=== PATIENT | female | born 1955 | race Caucasian/White ===

== ENCOUNTER 2018-04-21 11:47 | Emergency (ER) | payer OTHER ==
[~2018-04-21] VITALS: Ht 170.2 cm; Wt 82.1 kg
[~2018-04-21 11:47] MED LIST: ATEN50TA PO; AZIT250T12 PO; BUDE6HFA IH; HYDR-3454 PO; HYDR-700 PO; IBP200T PO; NAPR-591 PO; PRD20T PO; RT-ALBUINH IH
--- NOTE | 2018-04-21 12:13 | ED Lower Extremity ---
General Chief Complaint: Lower Extremity Stated Complaint: RT KNEE PAIN, FALL Nursing Triage Note: PT TO ROOM #7 VIA ED WC FROM TRIAGE. A&OX4. CO RT KNEE PAIN DESCRIBED "SHARP." PT REPORS SHE TRIPPED OVER A BABY GATE AND FELL TO HER KNEES APPROX 1000 THIS AM. PT DENIES HITTING HEAD OR LOC. REPORTS WHEN SHE ATTEMPTS TO MOVE RT KNEE, "IT CATCHES ON ITSELF." MINIMAL SWELLING NOTED. NO BRUISING NOTED. Nursing Sepsis Screen: No Definite Risk Source: patient, family Exam Limitations: no limitations History of Present Illness Date Seen by Provider: Apr 21, 2018 Time Seen by Provider: 11:52 Initial Comments Patient is a 63-year-old female who presents to the emergency room with complaints of right knee pain after a fall today. She reports that she was stepping over a baby gait when her foot became caught causing her to fall onto her right knee approximately 10:00 this morning. She denies hitting her head, neck pain, or loss of consciousness. There is mild swelling to the right knee, no ecchymosis noted. She states "I feel like my knee is catching". Onset: just prior to arrival Pain/Injury Location: right knee Method of Injury: fell Modifying Factors: Improves With Immobilization; Worse With Movement Allergies and Home Medications Allergies Coded Allergies: No Known Drug Allergies (Unverified , 02/15/11) Home Medications Albuterol Sulfate 8.5 Gm Hfa.aer.ad, 1-4 PUFF IH Q4H Prescribed by: MAHOGANY BE on 02/28/16 1014 Atenolol 50 Mg Tablet, 50 MG PO DAILY, (Reported) Azithromycin 250 Mg Tablet, 250 MG PO DAILY Start February 28 Prescribed by: MAHOGANY BE on 02/28/16 1014 Budesonide/Formoterol Fumarate 10.2 Gm Hfa.aer.ad, 1 PUFF IH BID, (Reported) Hydrocodone Bit/Acetaminophen 1 Each Tablet, 1-2 TAB PO Q4H PRN for PAIN Prescribed by: LETICIA JADE on 12/29/13 1253 Hydroxyzine Hcl 25 Mg Tablet, 25 MG PO HS, (Reported) Naproxen 500 Mg Tablet.dr, 500 MG PO Q6H PRN for PAIN, (Reported) PRN PAIN Prednisone 20 Mg Tab, 20 MG PO DAILY Prescribed by: MAHOGANY BE on 02/28/16 1014 Patient Home Medication List Home Medication List Reviewed: Yes Review of Systems Constitutional: see HPI; No chills, No fever Musculoskeletal: see HPI, joint pain (right knee) All Other Systems Reviewed Negative Unless Noted: Yes Past Kevmpic-Avpqbg-Bqyxqf Hx Past Med/Social Hx: Reviewed Nursing Past Med/Soc Hx Patient Social History Recent Foreign Travel: No Contact w/Someone Who Travel: No Recent Infectious Disease Expo: No Recent Hopitalizations: Yes (22 YEARS AGO AND THEN ONCE FOR PNEUMONIA) Physical Abuse: No Sexual Abuse: No Past Medical History Hysterectomy COPD Hypertension Nursing Suicide Risk Score: 0 Family Medical History Reviewed Nursing Family Hx Physical Exam Vital Signs Vital Signs - First Documented 04/21/18 11:52 Temp 98.5 Pulse 74 Resp 18 B/P (MAP) 149/92 (111) Pulse Ox 100 O2 Delivery Room Air Capillary Refill : Less Than 3 Seconds Height, Weight, BMI Height: 5'7.00" Weight: 181lbs. oz. 82.060846kp; BMI Method:Stated General Appearance: WD/WN, no apparent distress Neck: non-tender, full range of motion, supple, normal inspection Cardiovascular: normal peripheral pulses, regular rate, rhythm, no edema, no gallop, no JVD, no murmur Respiratory: chest non-tender, lungs clear, normal breath sounds, no respiratory distress, no accessory muscle use Hips: bilateral hip non-tender, bilateral hip normal inspection, bilateral hip normal range of motion Legs: bilateral leg non-tender, bilateral leg normal inspection, bilateral leg normal range of motion Knees: left knee non-tender, left knee normal inspection, left knee normal range of motion; right knee pain, right knee soft tissue tenderness, right knee swelling; bilateral knee other (increased pain with rom. ) Neurologic/Psychiatric: alert, normal mood/affect, oriented x 3 Skin: normal color, warm/dry Progress/Results/Core Measures Results/Orders My Orders Orders - PHILLIP RAMOS Knee, Right, 4 Views Or > (04/21/18 11:57) Vital Signs/I&O 04/21/18 04/21/18 11:52 13:17 Temp 98.5 98.5 Pulse 74 67 Resp 18 18 B/P (MAP) 149/92 (111) 155/87 (111) Pulse Ox 100 97 O2 Delivery Room Air Room Air Blood Pressure Mean: 111 Progress Progress Note : Time: 12:59 Progress Note I have seen and evaluated the patient. I informed her of normal imaging studies. She declines the need for pain medication. She agrees with plans of discharge, close follow-up, and return precautions were given. Diagnostic Imaging Diagonstic Imaging: Xray Plain Films/CT/US/NM/MRI: knee Comments NAME: [facility] REC#: [id number] PT STATUS: REG ER : 1955 PHYSICIAN: PHILLIP RAMOS ADMIT DATE: 04/21/18/ER Draft Date of Exam:04/21/18 KNEE, RIGHT, 4 VIEWS OR > INDICATION: Knee pain. Four views were obtained. FINDINGS: The alignment of the knee is normal. There is no fracture dislocation. Soft tissues are unremarkable. IMPRESSION: No acute fracture or dislocation. Dictated on workstation # [id number] Dict: 04/21/18 1240 Trans: 04/21/18 1247 [facility] [id number] Interpreted by: DELIA BLACK MD Electronically signed by: Reviewed: Reviewed by Me Departure Impression Primary Impression: Sprain of knee Disposition: 01 HOME, SELF-CARE Condition: Stable/Unchanged Departure-Patient Inst. Decision time for Depature: 13:05 Referrals: [facility] (PCP/Family) Primary Care Physician Patient Instructions: Knee Sprain (DC) Add. Discharge Instructions: Follow-up with your primary care provider within 1 week for recheck. Take ibuprofen and Tylenol as directed by the bottle for pain. Wear the Jacob bandage as needed for comfort. Return back to the emergency room for any worsening symptoms or concerns as needed. All discharge instructions reviewed with patient and/or family. Voiced understanding. PHILLIP RAMOS Apr 21, 2018 12:13
--- NOTE | 2018-04-21 12:48 | Diagnostic Imaging Report ---
INDICATION: Knee pain. Four views were obtained. FINDINGS: The alignment of the knee is normal. There is no fracture dislocation. Soft tissues are unremarkable. IMPRESSION: No acute fracture or dislocation. Dictated by: Dictated on workstation # [id number]
[2018-04-21 13:17] VITALS: BP 155/87
== END 2018-04-21 13:27 | disposition home or self-care (01) ==
LOC: EDUNIT# 11:47 → ER 11:48
DX: S83.91XA Sprain of unspecified site of right knee, initial encounter (principal); M25.561 Pain in right knee; J44.9 Chronic obstructive pulmonary disease, unspecified; I10 Essential (primary) hypertension; Z90.710 Acquired absence of both cervix and uterus; Z79.51 Long term (current) use of inhaled steroids; Z79.52 Long term (current) use of systemic steroids; Z87.01 Personal history of pneumonia (recurrent); W01.0XXA Fall on same level from slipping, tripping and stumbling without subsequent striking against object, initial encounter
CPT/HCPCS: 73564

== ENCOUNTER → 2019-01-02 | Outpatient (CLI) | payer OTHER ==
[2019-01-02 12:07] LABS: ABG BASE EXCESS -3.6 MMOL/L (-2.5-2.5); ABG OXYGEN SATURATION 96 % (94-100); ABG PCO2 34 MMHG (35-45); ABG PO2 72 MMHG (79-93); ABG TCO2 21.8 MMOL/L (21.0-31.0)
[2019-01-02 12:08] LABS: ALLENS TEST YES-POS; INSPIRED O2 ROOM AIR; VENTILATOR NO
[2019-01-02 12:09] LABS: PATIENT TEMP 96.3
== END ==
LOC: LAB 10:50
PROVIDERS: ATTEND Nurse Practitioner Family
DX: R06.09 Other forms of dyspnea (principal); J30.9 Allergic rhinitis, unspecified; R06.89 Other abnormalities of breathing; R05 Cough; J98.4 Other disorders of lung
CPT/HCPCS: 36600; 82805

== ENCOUNTER → 2019-01-12 | Outpatient (CLI) | payer OTHER ==
[2019-01-12 15:54] LABS: CREATININE SERUM 1.4 MG/DL (0.60-1.30)
--- NOTE | 2019-01-12 16:43 | Diagnostic Imaging Report ---
PROCEDURE: CT chest without contrast. TECHNIQUE: Multiple contiguous axial images were obtained through the chest without the use of intravenous contrast. Auto Exposure Controls were utilized during the CT exam to meet ALARA standards for radiation dose reduction. INDICATION: Cough and dyspnea with palpable abnormality in the anterior neck region. CT imaging was performed with marker at the site of patient's palpable abnormality. FINDINGS: There is a densely calcified 1 cm nodule in the left upper lobe consistent with granuloma. This is associated with linear scarring. Otherwise, the lungs are clear without evidence of significant pleural or pericardial fluid. Unenhanced images reveal no evidence of pathologic adenopathy within the mediastinum or mary. There is no evidence of axillary lesion. There is no evidence of mass underlying the site of patient's palpable abnormality. There is mild sternoclavicular degenerative change which could correspond to the patient's palpable abnormality. 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 Otherwise, there is no acute abnormality detected. Dictated by: Dictated on workstation # [id number]
== END ==
LOC: RAD 14:56
PROVIDERS: ATTEND Nurse Practitioner Family
DX: J84.10 Pulmonary fibrosis, unspecified (principal); R22.1 Localized swelling, mass and lump, neck; J30.9 Allergic rhinitis, unspecified; J98.4 Other disorders of lung
CPT/HCPCS: 71250; 82565; 84520

== ENCOUNTER 2019-01-24 12:10 | Outpatient (CLI) | payer OTHER ==
[~2019-01-24] VITALS: Ht 170.2 cm; Wt 80.3 kg
[~2019-01-24 12:10] MED LIST changes: +AMLO10TA7 PO; +BUDE10.2 IH; +FLUT9.9S NSEACH; +GUAI120013 PO; +LEVO5TAB28 PO
== END 2019-01-24 12:24 | disposition home or self-care (01) ==
LOC: PREOP 12:10
PROVIDERS: ATTEND Internal Medicine Critical Care Medicine
DX: Z01.818 Encounter for other preprocedural examination (principal)

== ENCOUNTER 2019-01-25 07:02 | Day surgery (SDC) | payer MEDICARE ==
--- NOTE | 2019-01-23 09:47 | NUR ---
SPO2 DID NOT DROP BELOW 88% WITH EXERTION. Addendum: 01/23/19 at 0956 by ISAEL SILVA RT Amended: Links added.
[~2019-01-25] VITALS: Ht 170.2 cm; Wt 80.3 kg
[2019-01-25] MEDS ORDERED: LIDOCAINE PF 2% 5 ML (XYLOCAINE) VIAL INJ ONE (07:03)
[2019-01-25] MEDS ORDERED: LIDOCAINE JELLY 2% 6 ML SYRINGE TOP ONE (07:03)
[2019-01-25] MEDS ORDERED: LIDOCAINE PF 1% 2 ML VIAL IJ ONE (07:03)
[2019-01-25] MEDS ORDERED: NS IV 500 ML 500 ML IV PRN (07:16)
[2019-01-25] MEDS ORDERED: NS IV 500 ML 500 ML ONE (07:18)
[2019-01-25 07:27] VITALS: BP 148/76
[2019-01-25] MEDS ORDERED: MIDAZOLAM 2 MG/2 ML (VERSED) VIAL IVP ONE (07:30)
[2019-01-25] MEDS ORDERED: fentaNYL INJECTION 100 MCG/2 ML AMP IVP ONE (07:30)
[2019-01-25] MEDS ORDERED: MIDAZOLAM 2 MG/2 ML (VERSED) VIAL ONE ×3 (07:45)
[2019-01-25] MEDS ORDERED: fentaNYL INJECTION 100 MCG/2 ML AMP ONE (07:45)
[2019-01-25 08:50] VITALS: BP 145/71
--- NOTE | 2019-01-25 09:00 | Pulmonary Procedures ---
Pulmonary Procedures Date of Procedure Date of Service: Jan 25, 2019 Bronch Bronchoscopy with bilateral washes SANTI bronchoalveolar lavage (BAL), and transbronchial brushes. Preop DX Hemoptysis, SANTI atelectasis per CT Postop DX: No active bleeding. Pt did have mucous plugs bilaterally Complications: none After informed consent obtained and formal time out pt was sedated using Fentanyl and Versed. Bronchoscope was advanced through the nare and vocal cords. 1% lidocaine was used to anesthetize vocal cords, epiglottis, saeed, and left/right main stem bronchus. An anatomical tour was undertaken down to the segmental bronchi bilaterally. No endobronchial lesions noted. No active bleeding. Pt did have mucous plugs bilaterally bronchoscopy with bilateral washes SANTI bronchoalveolar lavage (BAL), and transbronchial brushes were obtained. Pt tolerated procedure well. No complications noted. Stat CXR is pending. CAROLYN BLACK DO Jan 25, 2019 09:00
--- NOTE | 2019-01-25 09:01 | Progress Note-Pre Operative ---
Pre-Operative Progress Note H&P Reviewed The H&P was reviewed, patient examined and no changes noted. Date Seen by Provider: Jan 25, 2019 Time Seen by Provider: 07:00 Date H&P Reviewed: Jan 25, 2019 Time H&P Reviewed: 07:00 Pre-Operative Diagnosis: hemoptysis CAROLYN BLACK DO Jan 25, 2019 09:01
--- NOTE | 2019-01-25 09:01 | Pre-Op Note & Conscious Sedat ---
Pre-Operative Progress Note H&P Reviewed The H&P was reviewed, patient examined and no changes noted. Date H&P Reviewed: Jan 25, 2019 Time H&P Reviewed: 07:00 Conscious Sedation Pre-Proced Time 07:00 ASA Score 3 For ASA 3 and 4: Consider anesthesia and medical clearance. Also, for patients with a history of failed moderate sedation consider anesthesia. Airway Lungs Heart ASA score ASA 1: a normal healthy patient ASA 2: a patient with a mild systemic disease (mid diabetes, controlled hypertension, obesity ASA 3: a patient with a severe systemic disease that limits activity (angina, COPD, prior Myocardial infarction) ASA 4: a patient with an incapacitating disease that is a constant threat to life (CHF, renal failure) ASA 5: a moribund patient not expected to survive 24 hrs. (ruptured aneurysm) ASA 6: a declared brain- patient whose organs are being harvested. For emergent operations, add the letter E after the classification Mallampati Classification Grade 2 Sedation Plan Analgesia, Amnesia, Plan communicated to team members, Discussed options with patient/fam, Discussed risks with patient/fam The patient is an appropriate candidate to undergo the planned procedure, sedation, and anesthesia. The patient immediately re-assessed prior to indication. CAROLYN BLACK DO Jan 25, 2019 09:01
[2019-01-25 09:20] VITALS: BP 130/77
[2019-01-25 09:25] VITALS: BP 130/77
--- NOTE | 2019-01-25 10:01 | Diagnostic Imaging Report ---
EXAM: CHEST 1 VIEW, AP/PA ONLY INDICATION: Bronchoscopy. COMPARISON: CT chest without contrast 01/12/2019. FINDINGS: Normal heart size and central pulmonary vascularity. Granuloma in the left midlung. No new focal pulmonary opacity. No pleural effusion or pneumothorax. No acute osseous findings. IMPRESSION: No acute cardiopulmonary findings. Dictated by: Dictated on workstation # [id number]
--- NOTE | 2019-01-25 15:54 | Diagnostic Imaging Report ---
INDICATION: Left lung lesion. TECHNIQUE: An intraoperative view was obtained during bronchoscopy per Dr. Foster. FINDINGS: The obtained view demonstrates a bronchoscope overlying the left hilum. The study is otherwise limited. 20 seconds of fluoroscopy time was used in Surgery. IMPRESSION: An intraoperative fluoroscopy view demonstrates a bronchoscope over the left hilum. 20 seconds of fluoroscopy time was used in Surgery. Dictated by: Dictated on workstation # [id number]
== END 2019-01-25 09:25 | disposition home or self-care (01) ==
LOC: ENDO 07:02
PROVIDERS: ATTEND Internal Medicine Critical Care Medicine
DX: T17.900A Unspecified foreign body in respiratory tract, part unspecified causing asphyxiation, initial encounter (principal); R04.2 Hemoptysis; J98.11 Atelectasis; J30.9 Allergic rhinitis, unspecified; R06.00 Dyspnea, unspecified; R53.83 Other fatigue; R06.89 Other abnormalities of breathing; R91.8 Other nonspecific abnormal finding of lung field; Z87.891 Personal history of nicotine dependence; Z86.11 Personal history of tuberculosis; Z79.899 Other long term (current) drug therapy
CPT/HCPCS: 71045; 87015; 87070; 87077; 87101; 87116; 87185; 87205; 87206; 94640

== ENCOUNTER → 2019-03-10 | Outpatient (CLI) | payer MEDICARE, MEDICAID ==
[~2019-03-10] MED LIST changes: +RT-ALBUTEROL SULF 2.5 MG/3 ML PRE-MIX VIAL INH ONE
== END ==
LOC: RT 11:25
PROVIDERS: ATTEND Nurse Practitioner Family
DX: J30.9 Allergic rhinitis, unspecified (principal); J98.4 Other disorders of lung
CPT/HCPCS: 94060; 94726; 94729

== ENCOUNTER → 2019-05-03 | Outpatient (CLI) | payer MEDICARE, MEDICAID ==
[~2019-05-03] MED LIST changes: +HOLD METFORMIN - RECEIVED CONTRAST 20 ML VIAL IV SCH; +IOHEXOL 350 MG/ML 100 ML (OMNIPAQUE 350) VIAL IV ONE; +NS 100 ML (IVPB) BAG IV ONE; -RT-ALBUTEROL SULF 2.5 MG/3 ML PRE-MIX VIAL INH ONE
--- NOTE | 2019-05-03 13:17 | Diagnostic Imaging Report ---
INDICATION: Lump over the thyroid region and into the upper chest. TECHNIQUE: Axial imaging through the neck and chest was performed after the administration of intravenous contrast. Sagittal and coronal reformations were also performed. COMPARISON: Correlation is made with prior noncontrast CT chest from 01/12/2019. FINDINGS: CT neck: The visualized intracranial structures are unremarkable. Posterior nasopharynx and oropharynx are unremarkable. Parapharyngeal fat planes are preserved. The epiglottis and larynx are unremarkable. No discrete thyroid mass is detected. No cervical lymphadenopathy is seen. The submandibular and parotid glands appear to be symmetric bilaterally. No fluid collection is seen. IMPRESSION: Unremarkable CT of the neck. CT chest: No axillary lymphadenopathy is detected. No definite mediastinal or hilar lymphadenopathy is detected. No pericardial or pleural fluid is seen. There is some linear scarring in the left upper lobe as well as a calcified granuloma in the left upper lobe. No noncalcified nodules or masses are seen. No chest wall mass or fluid collection is identified. Upper abdomen is grossly unremarkable. IMPRESSION: Unremarkable CT of the chest apart from prior granulomatous exposure. No acute features are seen. Dictated by: Dictated on workstation # [id number]
== END ==
LOC: RAD 12:05
PROVIDERS: ATTEND Nurse Practitioner Community Health
DX: E04.1 Nontoxic single thyroid nodule (principal); R22.2 Localized swelling, mass and lump, trunk
CPT/HCPCS: 70491; 71260

== ENCOUNTER → 2019-06-27 | Outpatient (CLI) | payer MEDICARE, MEDICAID ==
[~2019-06-27] MED LIST changes: -HOLD METFORMIN - RECEIVED CONTRAST 20 ML VIAL IV SCH; -IOHEXOL 350 MG/ML 100 ML (OMNIPAQUE 350) VIAL IV ONE; -NS 100 ML (IVPB) BAG IV ONE
--- NOTE | 2019-06-27 10:35 | Diagnostic Imaging Report ---
INDICATION: Screening. TECHNIQUE: The current study was also evaluated with a Computer Aided Detection (CAD) system. 3-D Tomographic imaging was also performed. 3D tomosynthesis was performed and reviewed. INDICATION: Screening. COMPARISON: 08/09/2014 and 12/22/2013. FINDINGS: There are scattered fibroglandular densities bilaterally. There is no dominant mass, spiculated lesion, or suspicious calcification identified. The skin, nipples, and axillae are unremarkable. IMPRESSION: Negative. ACR BI-RADS Category 1: Negative. Result letter will be mailed to the patient. Note: At least 10% of breast cancer is not imaged by mammography. Dictated by: Dictated on workstation # [id number]
== END ==
LOC: RAD 08:38
PROVIDERS: ATTEND Nurse Practitioner Family
DX: Z12.31 Encounter for screening mammogram for malignant neoplasm of breast (principal)
CPT/HCPCS: 77067

== ENCOUNTER → 2019-07-07 | Outpatient (CLI) | payer MEDICARE, MEDICAID ==
--- NOTE | 2019-07-07 13:16 | Diagnostic Imaging Report ---
CLINICAL INDICATION: Patient with history of chronic kidney disease stage III. Exam: Bilateral renal ultrasound and bladder ultrasound . Comparison: CT scan of the neck and chest with contrast dated 05/03/2019. Findings: There are areas of cortical thinning seen (left side more than the right). Again noted mild prominence of the left renal pelvis and calyces. These findings are also seen on comparison chest CT scan. Otherwise, both kidneys are normal in size, shape, and echogenicity without stones, or focal lesions with the right and left kidneys measuring 9.4 cm and 8.3 cm in their craniocaudal dimensions. Ultrasound evaluation of the bladder is grossly unremarkable. Bilateral ureteral jets are seen. The pre-void bladder volume is 259 cc. Impression: 1: Again seen mild prominence of the left renal pelvis and calyx which may be related to mild left hydronephrosis. 2: Bilateral renal cortical thinning. Otherwise, the remainder of this exam is unremarkable. 3: Bladder is unremarkable as visualized. Dictated by: Dictated on workstation # [id number]
== END ==
LOC: RAD 12:03
PROVIDERS: ATTEND Nurse Practitioner
DX: I12.9 Hypertensive chronic kidney disease with stage 1 through stage 4 chronic kidney disease, or unspecified chronic kidney disease (principal); N18.3 Chronic kidney disease, stage 3 (moderate); E78.5 Hyperlipidemia, unspecified; N28.89 Other specified disorders of kidney and ureter; Z79.1 Long term (current) use of non-steroidal anti-inflammatories (NSAID)
CPT/HCPCS: 76770

== ENCOUNTER 2019-08-21 05:46 | Outpatient (CLI) | payer MEDICARE, MEDICAID ==
[~2019-08-21] VITALS: Ht 170.2 cm; Wt 80.0 kg
== END 2019-08-21 13:12 | disposition home or self-care (01) ==
LOC: PREOP 05:46
PROVIDERS: ATTEND Surgery
DX: Z01.818 Encounter for other preprocedural examination (principal)

== ENCOUNTER → 2020-01-22 | Outpatient (CLI) | payer MEDICARE, MEDICAID ==
[~2020-01-22] MED LIST changes: +CATHETER FLUSH 10 ML SYR IV PRN; +HOLD METFORMIN - RECEIVED CONTRAST 20 ML VIAL IV SCH; +IOHEXOL 350 MG/ML 100 ML (OMNIPAQUE 350) VIAL IV ONE; +NS 100 ML (IVPB) BAG IV ONE
[2020-01-22 09:45] LABS: CREATININE SERUM 1.12 MG/DL (0.60-1.30)
--- NOTE | 2020-01-22 10:46 | Diagnostic Imaging Report ---
PROCEDURE: CT chest with contrast only. TECHNIQUE: Multiple contiguous axial images were obtained through the chest after administration of intravenous contrast. Auto Exposure Controls were utilized during the CT exam to meet ALARA standards for radiation dose reduction. INDICATION: Cough, COPD. The previous CT chest exam of 05/03/2019 failed to show any sign of an acute cardiopulmonary abnormality. FINDINGS: On this exam, there is no defect within the pulmonary arteries to indicate a pulmonary embolus. The aorta is not abnormally dilated and there is no sign of dissection. The heart size is within normal limits and stable when compared to the prior exam. Coronary artery calcifications are evident. The mild scar formation/chronic atelectasis near the left heart border seen previously is again evident and no different. The calcified granuloma in this area is also again visualized and unchanged. There is a small 4.4 mm noncalcified nodule along the anterior aspect of the right middle lobe. (Image 81 of 169). In retrospect this was present on the prior exam and does not appear to have changed significantly. I do suspect that this is a benign process. Even so, a six-month follow-up CT chest exam would be recommended for further study. There are no other parenchymal lung nodules identified. There are mild emphysematous changes involving both lungs. There is no sign of failure, pneumonia or pleural effusion to indicate an acute abnormality. The sections through the upper abdomen failed to show any evidence for an acute abnormality. The bone windows are unremarkable for fracture or for destructive lesion. There is no obvious breast mass. IMPRESSION: 1. There is no evidence for an acute cardiopulmonary abnormality. 2. The small nodular density in the anterior aspect of the right middle lobe is of uncertain etiology although most likely benign. Recommendations as above. Dictated by: Dictated on workstation # [id number]
== END ==
LOC: RAD 09:10
PROVIDERS: ATTEND Nurse Practitioner Family
DX: J43.9 Emphysema, unspecified (principal); J84.10 Pulmonary fibrosis, unspecified; J98.11 Atelectasis; I25.10 Atherosclerotic heart disease of native coronary artery without angina pectoris; J30.9 Allergic rhinitis, unspecified; R91.1 Solitary pulmonary nodule
CPT/HCPCS: 36415; 71260; 82565; 84520

== ENCOUNTER → 2020-02-12 | Outpatient (CLI) | payer MEDICARE, MEDICAID ==
[~2020-02-12] MED LIST changes: -CATHETER FLUSH 10 ML SYR IV PRN
[2020-02-12 08:41] LABS: ALBUMIN 4.6 GM/DL (3.2-4.5); CHLORIDE 106 MMOL/L (98-107); POTASSIUM 4.3 MMOL/L (3.6-5.0); SODIUM 140 MMOL/L (135-145)
[2020-02-12 08:42] LABS: CALCIUM 9.6 MG/DL (8.5-10.1)
[2020-02-12 08:43] LABS: GLUCOSE 86 MG/DL (70-105); TOTAL PROTEIN 7.5 GM/DL (6.4-8.2)
[2020-02-12 08:44] LABS: CARBON DIOXIDE 23 MMOL/L (21-32)
[2020-02-12 08:45] LABS: BILIRUBIN,TOTAL 0.5 MG/DL (0.1-1.0)
[2020-02-12 08:46] LABS: ALKALINE PHOSPHATASE 100 U/L (40-136)
[2020-02-12 08:47] LABS: CREATININE SERUM 1.11 MG/DL (0.60-1.30); GFR ESTIMATED 49
[2020-02-12 08:48] LABS: BUN/CREATININE RATIO 18
[2020-02-12 08:50] LABS: ALANINE AMINOTRANSFERASE 26 U/L (0-55)
--- NOTE | 2020-02-12 09:52 | Diagnostic Imaging Report ---
CLINICAL INDICATIONS: Patient with anterior neck pain and base of neck right-sided clavicular area. EXAM: Axial CT scan of the neck soft tissue performed with 75 mL of Omnipaque 350 IV contrast. Sagittal and coronal reformatted images are created. COMPARISON: CT scan of the neck and chest with contrast dated 05/03/2019. FINDINGS: There is no neck soft tissue mass, fluid collection or fat stranding. There is no lymphadenopathy. The salivary glands are unremarkable. There is development of small low-density nodules in the right left thyroid gland with the largest measuring roughly 3 mm on the right. The oral cavity, tongue, sublingual space and submandibular region is unremarkable. The orbits and globes are unremarkable. Limited visualization of the intracranial structures are unremarkable. There is small anterior spurring involving the mid to lower cervical spine. Stable scarring in the right upper lobe. The major neck vasculature structures are patent. There is mild mucosal thickening involving frontal sinus and sphenoid sinus. There is mild to moderate mucosal thickening involving the ethmoid sinus. Both mastoid air cells are unremarkable. There is no significant change to the hypertrophic bony changes of the right sternoclavicular region with degenerative spurring. There is no significant abnormality in the right subclavicular or base of neck region. IMPRESSION: 1: There is no neck soft tissue mass, fluid collection, neck soft tissue inflammation or lymphadenopathy. 2: There is stable degenerative disease of the right sternoclavicular region. There is no other significant abnormality in the right subclavicular region. 3: Interval development of small low-density nodules involving the bilateral thyroid gland. Nonemergent thyroid ultrasound would better evaluate. Dictated by: Dictated on workstation # [id number]
== END ==
LOC: RAD 08:08
PROVIDERS: ATTEND Nurse Practitioner Community Health
DX: E04.2 Nontoxic multinodular goiter (principal); M19.011 Primary osteoarthritis, right shoulder
CPT/HCPCS: 36415; 70491; 80053

== ENCOUNTER → 2020-07-15 | Outpatient (CLI) | payer MEDICARE, MEDICAID ==
[~2020-07-15] MED LIST changes: +AMLO-251 PO; -AMLO10TA7 PO; -HOLD METFORMIN - RECEIVED CONTRAST 20 ML VIAL IV SCH; -IOHEXOL 350 MG/ML 100 ML (OMNIPAQUE 350) VIAL IV ONE; -NS 100 ML (IVPB) BAG IV ONE
--- NOTE | 2020-07-15 10:41 | Diagnostic Imaging Report ---
INDICATION: Screening. The current study was also evaluated with a Computer Aided Detection (CAD) system. 3-D Tomographic imaging was also performed. Comparison made with prior examination of 06/27/2019, 08/09/2014 and 12/22/2013. FINDINGS: There are scattered fibrotic densities bilaterally. There is no dominant mass. No lesion or suspicious calcification identified. Skin and nipples and axilla are unremarkable. IMPRESSION: Category 2 benign ACR BI-RADS Category 2: Benign findings. Result letter will be mailed to the patient. Note: At least 10% of breast cancer is not imaged by mammography. Dictated by: Dictated on workstation # [id number]
== END ==
LOC: RAD 07:45
PROVIDERS: ATTEND Nurse Practitioner Community Health
DX: Z12.31 Encounter for screening mammogram for malignant neoplasm of breast (principal)
CPT/HCPCS: 77063; 77067

== ENCOUNTER → 2020-07-31 | Outpatient (CLI) | payer MEDICARE, MEDICAID ==
--- NOTE | 2020-07-31 09:54 | Diagnostic Imaging Report ---
CT CHEST WO TECHNIQUE: Multiple contiguous axial images were obtained through the chest without the use of intravenous contrast. All CT scans use one or more of the following dose optimizing techniques: automated exposure control, MA and/or KvP adjustment based on a patient size and exam type, or iterative reconstruction. INDICATION: COPD. COMPARISON: CT chest of 01/22/2020 FINDINGS: Lungs and airway: No endoluminal nodule within the trachea. Mild centrilobular emphysema. No pulmonary mass or consolidation has developed. 4 mm nodule within the right middle lobe is stable (image 74, series 3). No new pulmonary nodules. Calcified lingular nodule is unchanged and favors old granulomatous infection. Pleura: No pleural effusion or pneumothorax. Heart and mediastinum: Thyroid is normal. No supraclavicular or axillary lymphadenopathy. No mediastinal, discrete hilar or juxtaphrenic lymphadenopathy. Heart is normal in size without pericardial effusion. Upper abdomen: No concerning abnormality in the upper abdomen. Musculoskeletal: No lytic or blastic skeletal lesions that would suggest neoplastic process. Endplate sclerosis is present at T11-T12. IMPRESSION: 1. No change that would indicate clinically active lung cancer. 2. The small nodule is stable and can be considered benign in nature given small size and stability. No nodules that would require dedicated follow-up imaging. 3. If patient meets criteria, consider initiation of annual low-dose screening CT chest in 12 months. Dictated by: Dictated on workstation # [id number]
== END ==
LOC: RAD 07:45
PROVIDERS: ATTEND Nurse Practitioner Family
DX: J44.9 Chronic obstructive pulmonary disease, unspecified (principal); R91.1 Solitary pulmonary nodule
CPT/HCPCS: 71250

== ENCOUNTER → 2020-11-19 | Outpatient (CLI) | payer MEDICARE, MEDICAID ==
--- NOTE | 2020-11-19 09:03 | Diagnostic Imaging Report ---
INDICATION: Postmenopausal. COMPARISON: None FINDINGS: The bone mineral density of the spine, hips and femoral necks was measured. There are no prior studies available for comparison. The total T score for the spine is -3.1. This value does indicate osteoporosis. The total T score for the left hip is -3.4 and for the right hip -4.1. The T score for the left femoral neck is -3.2 and for the right femoral neck -3.8. All of these values fall within the range of osteoporosis as well. AP Spine L1-L4: [BMD (g/cm2): 0.827] [T-Score: -3.1] [Z-Score: -1.9] [BMD Previous: NA] [BMD % Change: NA] LT Hip Neck: [BMD (g/cm2): 0.597] [T-Score: -3.2] [Z-Score: -1.9] LT Hip Total: [BMD (g/cm2):0.582] [T-Score:-3.4] [Z-Score: -2.4] [BMD Previous: NA] [BMD % Change: NA] RT Hip Neck: [BMD (g/cm2):0.508] [T-Score:-3.8] [Z-Score:-2.6] RT Hip Total: [BMD (g/cm2):0.492] [T-score:-4.1] [Z-Score:-3.1] [BMD Previous:NA] [BMD % Change:NA] *Indicates significant change from prior examination based on 95% confidence level. World Health Organization criteria for BMD interpretation classify patients as Normal (T-score at or above -1.0), Osteopenic (T-score between -1.0 and -2.5) or Osteoporotic (T-score at or below -2.5). LIMITATIONS AND MODIFICATION: None. FRACTURE RISK (FRAX SCORE): The ten year probability of (%): Major Osteoporotic Fracture: [48.7] Hip Fracture: [25.3] IMPRESSION: 1. There is osteoporosis of the spine and hips and both femoral necks. 2. 3. See below National Osteoporosis Foundation guidelines on when to potentially initiate pharmacologic therapy. Based on the National Osteoporosis Foundation Guidelines, pharmacologic treatment should be initiated in any of the following, unless clinical conditions suggest otherwise: * Any patient with prior fragility fracture of the hip or vertebrae. A spine fracture indicates 5X risk for subsequent spine fracture and 2X risk for subsequent hip fracture. * Osteoporosis (T-score <-2.5). * Postmenopausal women and men age 50 and older with low bone mass/osteopenia (T-score between -1.0 and -2.5) by DXA and 10-year major osteoporotic fracture greater than 20% or a 10-year probability of hip fracture greater than 3%. These fracture risks are supplied above in the FRAX score, if applicable. * Clinician judgement and/or patient preferences may indicate treatment for people with 10-year fracture probabilities above or below these levels. Dictated by: Dictated on workstation # [id number]
== END ==
LOC: RAD 08:30
PROVIDERS: ATTEND Nurse Practitioner Family
DX: M81.0 Age-related osteoporosis without current pathological fracture (principal); Z76.89 Persons encountering health services in other specified circumstances; Z78.0 Asymptomatic menopausal state
CPT/HCPCS: 77080

== ENCOUNTER → 2021-09-17 | Outpatient (CLI) | payer MEDICARE, MEDICAID ==
[~2021-09-17] MED LIST changes: +CATHETER FLUSH 10 ML SYR IV PRN; +HOLD METFORMIN - RECEIVED CONTRAST 20 ML VIAL IV SCH; +IOHEXOL 350 MG/ML 100 ML (OMNIPAQUE 350) VIAL IV ONE; +NS 100 ML (IVPB) BAG IV ONE
--- NOTE | 2021-09-17 14:11 | Diagnostic Imaging Report ---
PROCEDURE: CT abdomen and pelvis with contrast. TECHNIQUE: Multiple contiguous axial images were obtained through the abdomen and pelvis after administration of intravenous contrast. Auto Exposure Controls were utilized during the CT exam to meet ALARA standards for radiation dose reduction. All CT scans use one or more of the following dose optimizing techniques: automated exposure control, MA and/or KvP adjustment based on patient size and exam type or iterative reconstruction. INDICATION: Mid epigastric pain. Weight loss. Nausea. COMPARISON: 07/31/2020 FINDINGS: Included portions of the lung bases are clear. CT ABDOMEN: There are scattered colonic diverticulosis, no CT evidence of acute diverticulitis. Normal appendix is identified. Small bowel loops are nondistended. Kidneys show multilobulated appearance bilaterally. There are also multiple areas of prominent renal cortical thinning. No focal mass is seen. There is no hydronephrosis. Adrenal glands, spleen, pancreas, and liver have a normal CT appearance. There is no loculated fluid collection, free fluid or free air within the abdomen. No abnormal mesenteric or retroperitoneal adenopathy is seen. Osseous structures show no acute abnormalities. CT PELVIS: Urinary bladder wall appears slightly thickened and hyperenhancing. No distinct intraluminal filling defects are seen. There is no loculated fluid collection, free fluid, nor free air within the pelvis. No abnormal pelvic adenopathy is identified. Osseous structures show no acute abnormalities. IMPRESSION: 1. Slightly thickened and hyperenhancing appearance of the urinary bladder wall. Findings raise suspicion for potential cystitis. Correlation with urinary analysis is recommended. 2. Multilobulated appearance of both kidneys with multiple areas of focal thinning. Findings could be on the basis of prior infection or infarction. Background lobulation may be a contributing factor as well. 3. Colonic diverticulosis, no CT evidence of acute diverticulitis. Dictated by: Dictated on workstation # [id number]
== END ==
LOC: RAD 13:22
PROVIDERS: ATTEND Nurse Practitioner Family
DX: K57.30 Diverticulosis of large intestine without perforation or abscess without bleeding (principal)
CPT/HCPCS: 74177

== ENCOUNTER → 2021-10-17 | Outpatient (CLI) | payer MEDICARE, MEDICAID ==
[~2021-10-17] MED LIST changes: -CATHETER FLUSH 10 ML SYR IV PRN; +CYCL5TAB PO; -HOLD METFORMIN - RECEIVED CONTRAST 20 ML VIAL IV SCH; -IOHEXOL 350 MG/ML 100 ML (OMNIPAQUE 350) VIAL IV ONE; -NS 100 ML (IVPB) BAG IV ONE; +PANT40TA52 PO; +SUCR1TAB PO; +TERI202.4P SQ
== END ==
LOC: LABNPT 06:43
PROVIDERS: ATTEND Surgery
DX: Z53.9 Procedure and treatment not carried out, unspecified reason (principal)

== ENCOUNTER → 2021-10-20 | Outpatient (RCR) | payer MEDICARE, MEDICAID ==
[~2021-10-20] VITALS: Ht 170 cm; Wt 73.0 kg
== END | disposition home or self-care (01) ==
LOC: PREOP 10-13 05:39
PROVIDERS: ATTEND Surgery
DX: Z01.818 Encounter for other preprocedural examination (principal); R10.13 Epigastric pain

== ENCOUNTER 2021-11-13 06:36 | Outpatient (CLI) | payer MEDICARE, MEDICAID | END 2021-11-13 11:55 | LOC: PREOP 06:36 | PROVIDERS: ATTEND Surgery | DX: Z01.818 Encounter for other preprocedural examination (principal) ==

== ENCOUNTER 2021-11-25 07:03 | Day surgery (SDC) | payer MEDICARE, MEDICAID ==
[~2021-11-25] VITALS: Ht 170 cm; Wt 73.0 kg
[2021-11-25] MEDS ORDERED: LACTATED RINGERS 1,000 ML IV STA (07:04)
[2021-11-25] MEDS ORDERED: HURRICAINE EXT TUBE (BENZOCAINE) XX PRN (07:15)
[2021-11-25 07:23] VITALS: BP 139/64
[2021-11-25] MEDS ORDERED: proPOfol 200 MG/20 ML (DIPRIVAN) VIAL IV ONE (07:47)
--- NOTE | 2021-11-25 08:25 | Progress Note-Post Operative ---
Post-Operative Progess Note Surgeon (s)/Heat And Vent Aircraft Mechanic (s) Surgeon CHASE JIMENEZ DO Heat And Vent Aircraft Mechanic: na Pre-Operative Diagnosis ruq abd pain, gerd Post-Operative Diagnosis hiatal hernia Procedure & Operative Findings Date of Procedure 11/25/21 Procedure Performed/Findings egd c biopsies Anesthesia Type per country director Estimated Blood Loss Estimated blood loss (mL): none Specimens/Packing Specimens Removed antrum, ge CHASE JIMENEZ DO Nov 25, 2021 08:25
--- NOTE | 2021-11-25 08:27 | Anesthesia-General Post-Op ---
MAC Patient Condition Mental Status/LOC: Same as Preop Cardiovascular: Satisfactory Nausea/Vomiting: Absent Respiratory: Satisfactory Pain: Controlled Complications: Absent Post Op Complications Complications None Follow Up Care/Instructions Patient Instructions None needed. Anesthesiology Discharge Order Discharge Order Patient is doing well, no complaints, stable vital signs, no apparent adverse anesthesia problems. No complications reported per nursing. RADHA PUENTE CRNA Nov 25, 2021 08:27
[2021-11-25 08:30] VITALS: BP 138/75
--- NOTE | 2021-11-25 08:30 | Discharge Inst-Simple/Standard ---
Discharge Inst-Standard Patient Instructions/Follow Up Plan of Care/Instructions/FU: 2 weeks Bennie Activity as Tolerated: Yes Discharge Diet: Regular Diet CHASE JIMENEZ DO Nov 25, 2021 08:30
[2021-11-25 08:40] VITALS: BP 137/77
--- NOTE | 2021-11-25 10:59 | OPERATIVE REPORT ---
DATE OF SERVICE: 11/25/2021 PREOPERATIVE DIAGNOSES: Right upper quadrant abdominal pain, gastroesophageal reflux disease. POSTOPERATIVE DIAGNOSIS: Hiatal hernia. PROCEDURES PERFORMED: EGD with biopsy. SURGEON: Chase Avery DO. ANESTHESIA: Per HAT BLOCK MAKER. ESTIMATED BLOOD LOSS: None. COMPLICATIONS: None. INDICATIONS FOR PROCEDURE: The patient is a 66-year-old female with GERD symptoms, right upper quadrant abdominal pain. She understands the risks and benefits of the procedure and wished to proceed. Consent was signed in the chart. DESCRIPTION OF PROCEDURE: The patient was taken to the endoscopy suite and placed in the left lateral recumbent position. A timeout was performed. Scope was inserted in mouth, esophagus, stomach and into the duodenum without difficulty. There were no polyps, masses or ulcerations in the duodenum. Scope was slowly retracted back into the stomach, where it was further insufflated. No polyps, masses or ulcerations. Biopsy of the antrum was obtained. Scope was retroflexed noting a small hiatal hernia and no other pathology. Scope was returned to its normal position and slowly withdrawn to distal esophagus. Biopsy of the GE junction was obtained. No polyps, masses or ulcerations. Scope was slowly retracted back until completely removed. The patient tolerated the procedure well without any complications. She was taken to recovery room in a stable condition. RECOMMENDATIONS: The patient will continue on current medications. We will await biopsy results. We will consider working up gallbladder. The patient will be further discussed in the office. Any issues before that be seen at that time. Job ID: [id number] DocumentID: [id number] Dictated Date: 11/25/2021 08:32:50 Ase Master Mechanic Date: 11/25/2021 10:58:49 Dictated By: CHASE AVERY DO
== END 2021-11-25 08:48 | disposition home or self-care (01) ==
LOC: ENDO 07:03
PROVIDERS: ATTEND Surgery
DX: K44.9 Diaphragmatic hernia without obstruction or gangrene (principal); K21.9 Gastro-esophageal reflux disease without esophagitis; K57.30 Diverticulosis of large intestine without perforation or abscess without bleeding; K31.89 Other diseases of stomach and duodenum; Z87.891 Personal history of nicotine dependence; Z79.52 Long term (current) use of systemic steroids

== ENCOUNTER → 2021-12-23 | Outpatient (CLI) | payer MEDICARE, MEDICAID ==
--- NOTE | 2021-12-23 09:10 | Diagnostic Imaging Report ---
CLINICAL INDICATION: Patient with epigastric pain. EXAM: Right upper quadrant ultrasound. COMPARISON: CT scan of the abdomen and pelvis with contrast dated 09/17/2021. FINDINGS: Patient body habitus and overlying bowel gas limit evaluation of the pancreas which is unable to be evaluated. Visualized portions of the abdominal aorta and IVC are unremarkable. The liver has normal echogenicity and echotexture. The liver surface is smooth. The liver measures 14.4 cm. The main portal vein demonstrates hepatopetal flow. There is no intrahepatic or extrahepatic ductal dilation. The common bile duct measures 4.3 mm. The gallbladder is mild to moderately fluid distended. There are no stones or sludge. There is no pericholecystic fluid and no significant gallbladder wall thickening. There is no sonographic Cevallos sign. The right kidney shows no evidence of hydronephrosis or mass. The right kidney measures 9.0 cm in craniocaudal dimension. There is no abdominal ascites. IMPRESSION: 1: The pancreas is obscured and unable to be evaluated on this exam. If there is clinical concern for pancreatic abnormality, serology tests may better evaluate. 2: Otherwise, unremarkable right upper quadrant ultrasound. Dictated by: Dictated on workstation # [id number]
== END ==
LOC: RAD 07:14
PROVIDERS: ATTEND Surgery
DX: R10.13 Epigastric pain (principal)
CPT/HCPCS: 76705

== ENCOUNTER → 2021-12-29 | Outpatient (CLI) | payer MEDICARE, MEDICAID ==
[~2021-12-29] MED LIST changes: +CATHETER FLUSH 10 ML SYR IVP PRN
--- NOTE | 2021-12-29 13:40 | Diagnostic Imaging Report ---
RADIOPHARMACEUTICAL: 5.47mCi Tc-99m Choletec IV INDICATION: Epigastric pain COMPARISON: 12/23/2021 TECHNIQUE: Anterior dynamic imaging for 1 hour. Additional 60 minutes of imaging was performed after the patient ingested an 8 ounce can of Ensure Plus. FINDINGS: There is homogenous uptake throughout the liver. The gallbladder is visualized at 35minutes and small bowel at 40minutes. After the patient ingested an 8 ounce can of Ensure Plus, the gallbladder ejection fraction is calculated to be 33%. IMPRESSION: 1. No evidence of acute cholecystitis or common duct obstruction. 2. The gallbladder ejection fraction was calculated to be 33%, which is at the lower limits of normal. However, the patient did experience the upper abdominal pain while ingesting the 8 ounce can of Ensure Plus. Therefore, this could relate to underlying biliary dyskinesia or chronic acalculous cholecystitis. Dictated by: Dictated on workstation # [id number]
== END ==
LOC: CARD 10:00
PROVIDERS: ATTEND Surgery
DX: R10.13 Epigastric pain (principal)
CPT/HCPCS: 78227; A9537

== ENCOUNTER 2022-01-01 05:30 | Outpatient (CLI) | payer MEDICARE, MEDICAID ==
[~2022-01-01] VITALS: Ht 165.1 cm; Wt 70.5 kg
[~2022-01-01 05:30] MED LIST changes: -CATHETER FLUSH 10 ML SYR IVP PRN
[2022-01-06] MEDS ORDERED: MAGN100T5 PO ×2 (09:38→09:39)
[2022-01-06] MEDS ORDERED: CALC-308 PO (09:39)
[2022-01-06] MEDS ORDERED: CHOL100048 PO (09:39)
== END 2022-01-06 09:47 | disposition home or self-care (01) ==
LOC: PREOP 05:30
PROVIDERS: ATTEND Surgery
DX: Z01.818 Encounter for other preprocedural examination (principal)

== ENCOUNTER 2022-01-08 09:40 | Day surgery (SDC) | payer MEDICARE, MEDICAID ==
[2022-01-08] VITALS (11 sets, daily range): BP systolic 117–139; BP diastolic 63–83
[~2022-01-08] VITALS: Ht 165.1 cm; Wt 70.5 kg
[~2022-01-08 09:40] MED LIST changes: +CALC-308 PO; +CHOL100048 PO; +MAGN100T5 PO
[2022-01-08] MEDS ORDERED: LIDOCAINE/EPI 1%-1:200,000 (XYLOCAINE) 30 ML VIAL ONE (09:47)
[2022-01-08] MEDS ORDERED: LACTATED RINGERS 1,000 ML IV PRN (10:00)
[2022-01-08] MEDS ORDERED: ceFAZolin 2 GM IV Premixed 50 ML IV ONE (10:00)
[2022-01-08] MEDS ORDERED: LIDOCAINE PF 2% 5 ML (XYLOCAINE) VIAL ONE (10:20)
[2022-01-08] MEDS ORDERED: proPOfol 200 MG/20 ML (DIPRIVAN) VIAL IV ONE (10:20)
[2022-01-08] MEDS ORDERED: ONDANSETRON 4 MG/2 ML (SDV) Z0FRAN ONE (10:20)
[2022-01-08] MEDS ORDERED: SEVOFLURANE (ULTANE) 15 ML INHAL SOLN ONE ×2 (10:20→11:16)
[2022-01-08] MEDS ORDERED: fentaNYL INJ 100 MCG/2 ML AMP ONE ×2 (10:20→11:48)
[2022-01-08] MEDS ORDERED: MIDAZOLAM 2 MG/2 ML (VERSED) VIAL ONE (10:21)
--- NOTE | 2022-01-08 10:23 | Progress Note-Pre Operative ---
Pre-Operative Progress Note H&P Reviewed The H&P was reviewed, patient examined and no changes noted. Date Seen by Provider: January 08, 2022 Time Seen by Provider: 10: Date H&P Reviewed: January 08, 2022 Time H&P Reviewed: :23 Pre-Operative Diagnosis: biliary dyskinesia CHASE JIMENEZ DO January 08, 2022 10:23
[2022-01-08 10:48] LABS: POTASSIUM 4.3 MMOL/L (3.6-5.0)
[2022-01-08 10:49] LABS: CALCIUM 9.8 MG/DL (8.5-10.1)
[2022-01-08 10:54] LABS: CREATININE SERUM 1.02 MG/DL (0.60-1.30)
[2022-01-08] MEDS ORDERED: NEOSTIGMINE 3 MG/3 ML VIAL ONE (11:10)
[2022-01-08] MEDS ORDERED: GLYCOPYRROLATE 0.2 MG/ML (ROBINUL) 2 ML VIAL ONE (11:10)
[2022-01-08] MEDS ORDERED: ROCURONIUM 50 MG/5 ML (ZEMURON) VIAL IV ONE (11:12)
--- NOTE | 2022-01-08 11:22 | Progress Note-Post Operative ---
Post-Operative Progess Note Surgeon (s)/Field Sales Trainer (s) Surgeon CHASE JIMENEZ DO Field Sales Trainer: Dr. Alicea to assist in retraction dissection and closure. Pre-Operative Diagnosis biliary dyskinesia Post-Operative Diagnosis same Procedure & Operative Findings Date of Procedure 01/08/22 Procedure Performed/Findings PROCEDURE: Laparoscopic cholecystectomy with intraoperative cholangiogram. COMPLICATIONS: None. PROCEDURE: The patient was taken to the operating suite and was prepped and draped in sterile fashion. A surgical pause was performed. Just superior to the umbilicus, a 12 mm incision was made. Dissection was taken down to the fascia, which was then scored and grasped with a Adama and the abdomen was then entered. A 0 Vicryl suture was placed in a euhfkr-av-kdtor fashion and a Benson trocar was placed and secured. Pneumoperitoneum was achieved. A 5mm trochar place in the subxyphoid and 2 in the right upper quadrant. The gallbladder was then grasped and elevated. Adhesions to the gallbladder were taken down using blunt and cautery dissection. The cystic duct, and cystic artery were then dissected out. Clip was placed on the distal portion of the cystic duct which was then partially transected. An arrow catheter was inserted into the duct. The cholangiogram was then performed. No filing defects and contrast made its way into the duodenum. Common bile duct dilated. Catheter removed. Clips were placed on proximal portion of the cystic duct and then the duct was then transected. Clips were placed along the proximal and distal portion of the cystic artery which was then transected. Hook cautery was used to dissect the gallbladder from the gallbladder fossa achieving hemostasis. The gallbladder was placed in an Endobag and removed through the 12 mm trocar site. The abdomen was then reinspected. Copious amounts of irrigation were used to irrigate the abdomen and there were no signs of active bleeding. Hemostasis had been achieved. The 12 mm fascial defect was then closed with 0 Vicryl suture that had been placed in a [id number] fashion. The abdomen was then desufflated, the trocars were removed. The abdomen was then washed and dried. The skin was then closed using 4-0 Monocryl in a subcuticular fashion. The abdomen was washed and dried and Skin Affix was place over incisions. Patient tolerated the procedure well without any complications and was taken to the recovery room in stable condition. Anesthesia Type general Estimated Blood Loss Estimated blood loss (mL): minimal Specimens/Packing Specimens Removed gallbladder CHASE JIMENEZ DO January 08, 2022 11:22
[2022-01-08] MEDS ORDERED: DOCU-143 PO ×2 (11:28)
[2022-01-08] MEDS ORDERED: ACHD5005 PO (11:28)
--- NOTE | 2022-01-08 11:29 | Discharge Inst-Simple/Standard ---
Discharge Inst-Standard Discharge Medications New, Converted or Re-Newed RX: Transmitted to Pharmacy Patient Instructions/Follow Up Plan of Care/Instructions/FU: 2 weeks Bennie Activity as Tolerated: No Discharge Diet: Regular Diet Other Inst to Patient Follow up Appt: Make appointment for 2 weeks. Instructions: No lifting greater than 10 pounds. No strenuous activity. May shower in 24 hours, no tub bath or soaking. Use incentive spirometer at home as directed. No Smoking Skin/Wound Care: You have special glue over incision, it will fall off on it's own. Symptoms to Report: Appetite Changes, Extremity Discoloration, Numbness/Tingling, Swelling Increased, Bleeding Excessive, Eyesight Changes, Pain Increased, Urine Color Change, Constipation(Persistent), Fever over 101 degree F, Pain/Pressure in chest, Urinating Difficulty, Cough Up/Vomit Blood, Heart Beat Irreg/Pounding, Pain/Pressure in jaw, Vaginal Bleeding Increase, Cramps in feet or legs, Lightheadedness, Pain/Pressure in shoulder, Diarrhea(Persistent), Memory Changes Suddenly, Questions/Concerns, Weight gain consecutive days, Dizziness/Fainting, Nausea/Vomiting, Shortness of Breath, Weight gain over 2 pounds. If eyes or skin turn yellow notify physician. If questions or concerns contact your physician Or seek help at emergency department. CHASE JIMENEZ DO January 08, 2022 11:29
[2022-01-08] MEDS ORDERED: PROMETHAZINE INJ 25 MG/ML (PHENERGAN) AMP IVP ONE (11:30)
[2022-01-08] MEDS ORDERED: fentaNYL INJ 100 MCG/2 ML AMP IVP ONE (11:30)
[2022-01-08] MEDS ORDERED: ONDANSETRON 4 MG/2 ML (SDV) Z0FRAN IVP PRN (11:30)
[2022-01-08] MEDS ORDERED: MEPERIDINE (DEMEROL) INJ 50 MG/ML IVP ONE (11:30)
[2022-01-08] MEDS ORDERED: HYDROmorphone 2 MG/ML VIAL (DILAUDID) IV ONE (11:30)
[2022-01-08] MEDS ORDERED: HYDROcodone/APAP 5 MG/325 MG (LORTAB) TAB PO ONE (13:00)
--- NOTE | 2022-01-08 13:09 | Diagnostic Imaging Report ---
INDICATION: Cholecystectomy Operative cholangiogram performed in the routine fashion with injection into the biliary tree in surgery. A total of 68 images are obtained, 12.1 seconds of fluoroscopy time was used The biliary tree shows no definite filling defect to suggest stone. There is mild prominence of the biliary tree. There is some reflux into the pancreatic duct. Contrast does pass to the duodenum without obstruction IMPRESSION: Mild dilatation of the biliary tree without filling defect or obstruction. Dictated by: Dictated on workstation # [id number]
--- NOTE | 2022-01-08 13:24 | Anesthesia-General Post-Op ---
General Patient Condition Mental Status/LOC: Same as Preop Cardiovascular: Satisfactory Nausea/Vomiting: Absent Respiratory: Satisfactory Pain: Controlled Complications: Absent Post Op Complications Complications None Follow Up Care/Instructions Patient Instructions None needed. Anesthesia/Patient Condition Patient Condition Patient is doing well, no complaints, stable vital signs, no apparent adverse anesthesia problems. No complications reported per nursing. PINO DELONG CRNA January 08, 2022 13:24
== END 2022-01-08 13:55 | disposition home or self-care (01) ==
LOC: SDC 09:40
PROVIDERS: ATTEND Surgery
DX: K82.8 Other specified diseases of gallbladder (principal); K81.1 Chronic cholecystitis; K21.9 Gastro-esophageal reflux disease without esophagitis; Z87.891 Personal history of nicotine dependence
CPT/HCPCS: 36415; 76000; 80048; 87081

== ENCOUNTER → 2023-01-14 | Outpatient (CLI) | payer MEDICARE, MEDICAID ==
[~2023-01-14] MED LIST changes: +ACHD5005 PO; +ALBU8.5H6 IH; +DOCU-143 PO; -RT-ALBUINH IH
== END ==
LOC: CARD 08:06
PROVIDERS: ATTEND Internal Medicine Cardiovascular Disease
DX: I08.1 Rheumatic disorders of both mitral and tricuspid valves (principal); I10 Essential (primary) hypertension; I25.10 Atherosclerotic heart disease of native coronary artery without angina pectoris
CPT/HCPCS: 93306

== ENCOUNTER → 2023-03-17 | Outpatient (CLI) | payer MEDICARE, MEDICAID ==
[~2023-03-17] MED LIST changes: +CATHETER FLUSH 10 ML SYR IVP PRN; +REGADENOSON 0.4 MG/5 ML SYR (LEXISCAN) IV ONE
[2023-03-17 07:36] LABS: ALBUMIN 4.2 GM/DL (3.2-4.5); BILIRUBIN,TOTAL 0.6 MG/DL (0.1-1.0); CALCIUM 9.4 MG/DL (8.5-10.1); CREATININE SERUM 1.24 MG/DL (0.60-1.30); POTASSIUM 4.2 MMOL/L (3.6-5.0); TOTAL PROTEIN 6.7 GM/DL (6.4-8.2)
[2023-03-17 08:59] VITALS: BP 136/86
[2023-03-17 09:13] VITALS: BP 116/82
--- NOTE | 2023-03-17 15:56 | Cardiology Stress Test Report ---
Stress Test Report Date of Procedure/Referring: Date of Procedure: Mar 17, 2023 PCP Tata Escobar DO Admitting Physician Admitting Physician: Attending Physician: Meli Carrero MD Baseline Heart Rate: 66 Baseline Blood Pressure: Blood Pressure Systolic: 116 Blood Pressure Diastolic: 82 Baseline Vitals Vital Signs Date Time Temp Pulse Resp B/P (MAP) Pulse Ox O2 Delivery O2 Flow Rate FiO2 03/17/23 08:59 59 136/86 (103) Baseline EKG: Baseline EKG: NSR Summary After explaining the procedure to the patient, she signed a consent and then brought to the stress nuclear laboratory. Patient received 0.4 mg Lexiscan for stress test, ECG, heart rate and blood pressure were monitored continuously. Resting and stress dose of radio tracer were injected, imaging was acquired and reviewed in short axis, horizontal long axis and vertical long axis views. TID: 1.06 SSS: 1 SDS: 1 EF: 71 Patient tolerated Lexiscan well Occasional PVCs noted during test Breast attenuation with fixed defect at the apex, no significant ischemia or infarction on SPECT images Normal left ventricular size, ejection fraction 71% Copy Copies To 1: TATA ESCOBAR BASHAR J MD Mar 17, 2023 15:56
== END ==
LOC: CARD 06:52
PROVIDERS: ATTEND Internal Medicine Cardiovascular Disease
DX: I10 Essential (primary) hypertension (principal); I25.10 Atherosclerotic heart disease of native coronary artery without angina pectoris
CPT/HCPCS: 78452; 80053; 80061; 93017; A9502; 36415